=== PATIENT | female | born 1945 | race Caucasian/White ===

== ENCOUNTER → 2016-08-15 | Outpatient (CLI) | payer MEDICARE | LOC: MAMO 12:28 | DX: Z12.31 Encounter for screening mammogram for malignant neoplasm of breast (principal) | CPT/HCPCS: G0202 ==

== ENCOUNTER → 2020-05-04 | Day surgery (SDC) | payer MEDICARE ==
[~2020-05-04] MED LIST: ASPIRIN EC81 MG PO; BENAZEPRIL HCL20 MG PO; BIOTIN PO; CALCIUM+VITD PO; CEFUROXIME500 MG PO; CENTRUM COMPLE1 EACH PO; CRESTOR10 MG PO; FARXIGA5 MG PO; FUROSEMIDE40 MG PO; GLIPIZIDE ER10 MG PO; IRON325 M1 PO; LOSARTAN POTAS100 MG PO; LOSARTAN POTASS50 MG PO; MACROBID 100 M100 M1 PO; METFORMIN HCL1000 MG PO; METOPROLOL PO; MULTI VITAMIN PO; OMEPRAZOLE20 M1 PO; OMNICEF 300 MG300 MG PO; POTASSIUM CHLO10 ME1 PO; PRAVASTATIN SOD40 MG PO; TOPROL XL50 MG PO; TRULICITY1.5 MG/0.5 SQ; VISION FORMULA PO; VIT B12 INJ; VITAMIN B-121000 MC3 PO; VITAMIN C500 M4 PO
== END | disposition home or self-care (01) ==
LOC: OR 06:35
DX: K31.89 Other diseases of stomach and duodenum (principal); D50.0 Iron deficiency anemia secondary to blood loss (chronic); E66.01 Morbid (severe) obesity due to excess calories; I11.0 Hypertensive heart disease with heart failure; I50.9 Heart failure, unspecified; E78.00 Pure hypercholesterolemia, unspecified; E11.9 Type 2 diabetes mellitus without complications; K21.9 Gastro-esophageal reflux disease without esophagitis; Z82.49 Family history of ischemic heart disease and other diseases of the circulatory system; Z83.3 Family history of diabetes mellitus; Z68.41 Body mass index [BMI] 40.0-44.9, adult; Z88.8 Allergy status to other drugs, medicaments and biological substances; Z79.84 Long term (current) use of oral hypoglycemic drugs; Z79.82 Long term (current) use of aspirin; Z79.899 Other long term (current) drug therapy
CPT/HCPCS: J2704; J7040

== ENCOUNTER 2020-09-06 06:43 | Observation (INO) | payer MEDICARE ==
[~2020-09-06] VITALS: Ht 165.1 cm; Wt 108.9 kg
[~2020-09-06 06:43] MED LIST changes: -CRESTOR10 MG PO; -GLIPIZIDE ER10 MG PO; -IRON325 M1 PO; -LOSARTAN POTAS100 MG PO; -OMNICEF 300 MG300 MG PO; -TOPROL XL50 MG PO; -TRULICITY1.5 MG/0.5 SQ; -VITAMIN B-121000 MC3 PO; -VITAMIN C500 M4 PO
[2020-09-06 07:30] LABS: HEMOGLOBIN 11.8 gm/dl (12.3-15.3); RED BLOOD COUNT 5.58 M/UL (4.00-5.10); WHITE BLOOD COUNT 6.5 K/UL (4.5-11.0)
[2020-09-06 07:40] LABS: BUN/CREATININE RATIO 15 (0-10)
[2020-09-06] MEDS ORDERED: TRULICITY1.5 MG/0.5 SQ (07:48)
[2020-09-06] MEDS ORDERED: TOPROL XL50 MG PO (14:45)
[2020-09-06] MEDS ORDERED: CRESTOR10 MG PO (14:46)
[2020-09-06] MEDS ORDERED: LOSARTAN POTAS100 MG PO (14:46)
[2020-09-06] MEDS ORDERED: VITAMIN B-121000 MC3 PO (14:47)
[2020-09-06] MEDS ORDERED: GLIPIZIDE ER10 MG PO (14:47)
[2020-09-06] MEDS ORDERED: VITAMIN C500 M4 PO (14:48)
[2020-09-06] MEDS ORDERED: IRON325 M1 PO (14:48)
[2020-09-07 01:04] LABS: HEMOGLOBIN 11.1 gm/dl (12.3-15.3); RED BLOOD COUNT 5.32 M/UL (4.00-5.10); WHITE BLOOD COUNT 5.4 K/UL (4.5-11.0)
[2020-09-07 01:32] LABS: BUN/CREATININE RATIO 24 (0-10)
[2020-09-07] MEDS ORDERED: OMNICEF 300 MG300 MG PO (11:57)
== END 2020-09-07 14:32 | disposition home or self-care (01) ==
LOC: ER1 06:43 → PROG CARE 13:33 → CDU 13:33 → PROG CARE 16:19
PROVIDERS: Emergency Medicine; Physician Assistant; ADMIT Family Medicine
DX: I48.0 Paroxysmal atrial fibrillation (principal); E11.9 Type 2 diabetes mellitus without complications; D50.9 Iron deficiency anemia, unspecified; I10 Essential (primary) hypertension; E78.5 Hyperlipidemia, unspecified; N30.00 Acute cystitis without hematuria; E66.9 Obesity, unspecified; Z90.49 Acquired absence of other specified parts of digestive tract; Z88.8 Allergy status to other drugs, medicaments and biological substances; Z82.49 Family history of ischemic heart disease and other diseases of the circulatory system; Z83.3 Family history of diabetes mellitus; Z85.828 Personal history of other malignant neoplasm of skin; Z79.01 Long term (current) use of anticoagulants; Z79.4 Long term (current) use of insulin; Z79.82 Long term (current) use of aspirin; Z20.822 Contact with and (suspected) exposure to COVID-19
CPT/HCPCS: ECHO; 36415; 71045; 80048; 80053; 81001; 82550; 82553; 82962; 83540; 83550; 83605; 83690; 84439; 84443; 84484; 85025; 85379; 85610; 85730; 93005; 93306; 96374; 96375; 96376; 99285; G0378; J0696; J1650; Q9967; U0002

== ENCOUNTER → 2020-09-09 | Outpatient (CLI) | payer MEDICARE ==
[~2020-09-09] MED LIST changes: +CRESTOR10 MG PO; +GLIPIZIDE ER10 MG PO; +IRON325 M1 PO; +LOSARTAN POTAS100 MG PO; +OMNICEF 300 MG300 MG PO; +TOPROL XL50 MG PO; +TRULICITY1.5 MG/0.5 SQ; +VITAMIN B-121000 MC3 PO; +VITAMIN C500 M4 PO
== END ==
LOC: EXRD 14:45
DX: E04.1 Nontoxic single thyroid nodule (principal); E04.2 Nontoxic multinodular goiter
CPT/HCPCS: 76536

== ENCOUNTER 2020-09-22 02:18 | Observation (INO) | payer MEDICARE ==
[~2020-09-22] VITALS: Ht 165.1 cm; Wt 105.7 kg
[2020-09-22 02:51] LABS: HEMOGLOBIN 10.8 gm/dl (12.3-15.3); RED BLOOD COUNT 5.07 M/UL (4.00-5.10); WHITE BLOOD COUNT 5.8 K/UL (4.5-11.0)
[2020-09-22 03:02] LABS: BUN/CREATININE RATIO 30 (0-10)
[2020-09-27 17:11] LABS: ANTIPANCREATIC ISLET CELLS Negative (Neg:<1:1)
== END 2020-09-23 15:21 | disposition home or self-care (01) ==
LOC: ER1 02:18 → CDU 04:27 → MED SURG 4 14:12
PROVIDERS: Obstetrics & Gynecology; Physician Assistant; Surgery; ADMIT Internal Medicine
PROC: 0UB97ZX Excision of Uterus, Via Natural or Artificial Opening, Diagnostic (ICD-10-PCS; principal; 2020-09-23 09:46)
PROC: 0UJD8ZZ Inspection of Uterus and Cervix, Via Natural or Artificial Opening Endoscopic (ICD-10-PCS; principal; 2020-09-23 09:46)
PROC: 0DBH8ZX Excision of Cecum, Via Natural or Artificial Opening Endoscopic, Diagnostic (ICD-10-PCS; 2020-09-23 09:46)
DX: C54.1 Malignant neoplasm of endometrium (principal); D12.3 Benign neoplasm of transverse colon; C18.0 Malignant neoplasm of cecum; E11.9 Type 2 diabetes mellitus without complications; I10 Essential (primary) hypertension; E78.5 Hyperlipidemia, unspecified; D50.9 Iron deficiency anemia, unspecified; I48.0 Paroxysmal atrial fibrillation; D25.9 Leiomyoma of uterus, unspecified; Z20.822 Contact with and (suspected) exposure to COVID-19; Z79.84 Long term (current) use of oral hypoglycemic drugs; Z79.899 Other long term (current) drug therapy; Z88.8 Allergy status to other drugs, medicaments and biological substances; Z85.828 Personal history of other malignant neoplasm of skin; Z86.010 Personal history of colon polyps; Z90.49 Acquired absence of other specified parts of digestive tract
CPT/HCPCS: 76830; 80053; 81001; 82270; 82378; 82962; 85018; 85025; 85610; 85730; 86304; 86341; 87086; 88341; 88342; 93005; 99285; G0378; J1100; J2001; J2250; J2405; J2704; J2795; J3010; J7030; J7120; U0002

== ENCOUNTER → 2021-01-10 | Outpatient (CLI) | payer MEDICARE, OTHER | LOC: CT 08:00 | DX: D50.9 Iron deficiency anemia, unspecified (principal); I31.3 Pericardial effusion (noninflammatory); K76.0 Fatty (change of) liver, not elsewhere classified | CPT/HCPCS: 71260; Q9967 ==

== ENCOUNTER → 2021-01-30 | Day surgery (SDC) | payer MEDICARE ==
[~2021-01-30] MED LIST changes: +IBUPROFEN600 MG PO; +ONDANSETRON ODT4 MG PO; +ST. JOSEPH ASPI81 M1 PO; +VITAMIN D PO
== END | disposition home or self-care (01) ==
LOC: OR 07:30
DX: C18.9 Malignant neoplasm of colon, unspecified (principal); C55 Malignant neoplasm of uterus, part unspecified; I87.8 Other specified disorders of veins; I10 Essential (primary) hypertension; E78.5 Hyperlipidemia, unspecified; G47.30 Sleep apnea, unspecified; K21.9 Gastro-esophageal reflux disease without esophagitis; E11.9 Type 2 diabetes mellitus without complications; Z85.828 Personal history of other malignant neoplasm of skin; Z90.49 Acquired absence of other specified parts of digestive tract; Z80.3 Family history of malignant neoplasm of breast; Z88.8 Allergy status to other drugs, medicaments and biological substances; Z79.82 Long term (current) use of aspirin; Z79.84 Long term (current) use of oral hypoglycemic drugs; Z79.899 Other long term (current) drug therapy
CPT/HCPCS: 71045; 77001; 82962; C1769; C1788; J0690; J1642; J2250; J2704; J3010; J7030; J7040; J7120

== ENCOUNTER → 2021-04-11 | Outpatient (CLI) | payer MEDICARE | LOC: CT 04-05 11:00 | DX: D50.9 Iron deficiency anemia, unspecified (principal); C57.4 Malignant neoplasm of uterine adnexa, unspecified; C16.0 Malignant neoplasm of cardia | CPT/HCPCS: Q9967 ==

== ENCOUNTER → 2021-07-07 | Outpatient (CLI) | payer MEDICARE ==
[2021-07-07 13:37] LABS: HEMOGLOBIN 14.8 gm/dl (12.3-15.3); RED BLOOD COUNT 5.16 M/UL (4.00-5.10); WHITE BLOOD COUNT 5.3 K/UL (4.5-11.0)
[2021-07-07 14:01] LABS: BUN/CREATININE RATIO 28 (0-10)
== END ==
LOC: CT 13:06
PROVIDERS: Internal Medicine Hematology & Oncology
DX: C57.4 Malignant neoplasm of uterine adnexa, unspecified (principal); C18.0 Malignant neoplasm of cecum; D50.9 Iron deficiency anemia, unspecified; R16.1 Splenomegaly, not elsewhere classified; Z79.899 Other long term (current) drug therapy; Z90.49 Acquired absence of other specified parts of digestive tract
CPT/HCPCS: 36415; 80053; 82378; 85025; Q9967

== ENCOUNTER → 2021-11-02 | Day surgery (SDC) | payer MEDICARE | END | disposition home or self-care (01) | LOC: OR 07:28 | PROVIDERS: Internal Medicine Gastroenterology | PROC: 0DBP8ZX Excision of Rectum, Via Natural or Artificial Opening Endoscopic, Diagnostic (ICD-10-PCS; principal; 2021-11-02 08:50) | DX: Z12.11 Encounter for screening for malignant neoplasm of colon (principal); K51.40 Inflammatory polyps of colon without complications; K57.30 Diverticulosis of large intestine without perforation or abscess without bleeding; K64.1 Second degree hemorrhoids; E11.9 Type 2 diabetes mellitus without complications; I11.0 Hypertensive heart disease with heart failure; I50.9 Heart failure, unspecified; E78.5 Hyperlipidemia, unspecified; I35.0 Nonrheumatic aortic (valve) stenosis; D64.9 Anemia, unspecified; E66.01 Morbid (severe) obesity due to excess calories; Z68.38 Body mass index [BMI] 38.0-38.9, adult; Z79.84 Long term (current) use of oral hypoglycemic drugs; Z79.82 Long term (current) use of aspirin; Z79.899 Other long term (current) drug therapy; Z88.8 Allergy status to other drugs, medicaments and biological substances; Z85.038 Personal history of other malignant neoplasm of large intestine; Z85.42 Personal history of malignant neoplasm of other parts of uterus | CPT/HCPCS: 82962; J2704 ==